=== PATIENT | female | born 1940 | race Caucasian/White ===

== ENCOUNTER → 2017-12-08 | Outpatient (CLI) | payer MEDICARE, MEDICAID ==
[~2017-12-08] MED LIST: ASPIR 8181 MG PO; ASPIRIN325 PER TUBE; BACTROBAN CREAM30 G1 TOP; BUTALB-APAP-CA1 EACH PO; CIPRO500 MG PO; CLONIDINE1 EACH TRANSDERM; COLACE100 MG PER TUBE; COLACE100 MG PO; DITROPAN XL15 MG PER TUBE; DITROPAN XL15 MG PO; ESCITALOPRAM OX10 MG PER TUBE; FERREX 150 PLU1 EAC1 PER TUBE; FERREX 150 PLU1 EAC1 PO; LIPITOR10 MG PERTUBE; MECLIZINE HCL12.5 MG PO; MIRALAX17 GM PER TUBE; PEPCID20 MG PER TUBE; PEPCID20 MG PO; REGLAN 10 MG TA10 MG PO; ROBITUSSIN100 MG/53 PO; TYLENOL325 MG PER TUBE; TYLENOL325 MG PO; UNICOMPLEX M TA1 TA1 PER TUBE; UNICOMPLEX M TA1 TA1 PO; VITAMIN D22000 UNIT PER TUBE; VITAMIN D22000 UNIT PO
== END ==
LOC: M.RAD 09:22
DX: I69.391 Dysphagia following cerebral infarction (principal); R13.12 Dysphagia, oropharyngeal phase

== ENCOUNTER 2018-02-04 19:18 | Emergency (ER) | payer MEDICARE, MEDICAID ==
[~2018-02-04] VITALS: Ht 165.1 cm; Wt 62.6 kg
[~2018-02-04 19:18] MED LIST changes: -BACTROBAN CREAM30 G1 TOP; -MECLIZINE HCL12.5 MG PO; -REGLAN 10 MG TA10 MG PO; -ROBITUSSIN100 MG/53 PO
[2018-02-04] MEDS ORDERED: MECLIZINE HCL12.5 MG PO (19:25)
[2018-02-04] MEDS ORDERED: ROBITUSSIN100 MG/53 PO (19:25)
[2018-02-04] MEDS ORDERED: REGLAN 10 MG TA10 MG PO (19:26)
[2018-02-04 21:03] VITALS: BP 136/70
== END 2018-02-04 21:04 | disposition home or self-care (01) ==
LOC: M.ERS 19:18
DX: Z43.1 Encounter for attention to gastrostomy (principal); Z88.0 Allergy status to penicillin

== ENCOUNTER 2018-02-17 12:53 | Emergency (ER) | payer MEDICARE, MEDICAID ==
[~2018-02-17] VITALS: Ht 162.6 cm; Wt 75.8 kg
[~2018-02-17 12:53] MED LIST changes: +MECLIZINE HCL12.5 MG PO; +REGLAN 10 MG TA10 MG PO; +ROBITUSSIN100 MG/53 PO
[2018-02-17 13:46] LABS: ABSOLUTE EOSINOPHILS 0.1 thou/uL (0.0-0.7); ABSOLUTE LYMPHOCYTES 1.4 thou/uL (0.8-5.3); ABSOLUTE MONOCYTES 0.4 thou/uL (0.0-1.2); ABSOLUTE NEUTROPHILS 3.1 thou/uL (1.6-8.1); BASOPHILS 0.3 %; EOSINOPHILS 2.2 %; HEMATOCRIT 35.8 % (37.0-47.0); HEMOGLOBIN 11.5 gm/dL (12.0-15.0); LYMPHOCYTES 27.2 %; MCH 28.9 pg (26.0-34.0); MCHC 32.1 g/dL (28.0-37.0); MONOCYTES 8.2 %; MPV 7.7 fl. (7.2-11.1); NUCLEATED RBCS 0 /100WBC; PLATELET COUNT* 172 thou/uL (150-400); POLYS 62.1 %; RBC 3.97 mil/uL (4.20-5.00); RDW-CV 16.5 % (10.5-14.5)
[2018-02-17 13:51] LABS: CALCIUM 9.3 mg/dL (8.5-10.1); CREATININE 0.9 mg/dL (0.6-1.3); POTASSIUM 3.8 mmol/L (3.5-5.1)
[2018-02-17 13:56] LABS: ALBUMIN 3.1 g/dL (3.4-5.0); TOTAL BILIRUBIN 0.3 mg/dL (<0.1-1.0); TOTAL PROTEIN 7.5 g/dL (6.4-8.2)
[2018-02-17] MEDS ORDERED: BACTROBAN CREAM30 G1 TOP (14:18)
[2018-02-17 14:39] VITALS: BP 117/93
== END 2018-02-17 15:25 | disposition home or self-care (01) ==
LOC: M.ERS 12:53
PROVIDERS: Nurse Practitioner Psychiatric/Mental Health
DX: Z43.1 Encounter for attention to gastrostomy (principal); K94.22 Gastrostomy infection; Z86.73 Personal history of transient ischemic attack (TIA), and cerebral infarction without residual deficits; Z88.0 Allergy status to penicillin

== ENCOUNTER → 2018-02-23 | Outpatient (CLI) | payer MEDICARE, MEDICAID ==
[~2018-02-23] MED LIST changes: +BACTROBAN CREAM30 G1 TOP
== END ==
LOC: M.RAD 02-19 11:00
DX: R13.12 Dysphagia, oropharyngeal phase (principal); I69.351 Hemiplegia and hemiparesis following cerebral infarction affecting right dominant side; I69.391 Dysphagia following cerebral infarction; A49.8 Other bacterial infections of unspecified site; D50.9 Iron deficiency anemia, unspecified; J30.2 Other seasonal allergic rhinitis; N32.81 Overactive bladder; R26.89 Other abnormalities of gait and mobility; E78.5 Hyperlipidemia, unspecified; E56.9 Vitamin deficiency, unspecified; E78.4 Other hyperlipidemia; I10 Essential (primary) hypertension; R48.8 Other symbolic dysfunctions; K21.9 Gastro-esophageal reflux disease without esophagitis; K59.00 Constipation, unspecified; R35.0 Frequency of micturition